=== PATIENT | female | born 1955 | race Caucasian/White ===

== ENCOUNTER → 2017-06-09 13:17 | Outpatient (CLI) | payer MEDICAID, SELFPAY ==
--- NOTE | 2017-06-10 09:48 | PFT ---
INTRODUCTION: The patient is a 61-year-old female currently under the care of Georgette Sandoval NP the presents for pulmonary function testing secondary to a diagnosis of asthma. Respiratory therapy reports good patient effort and reports no other concerns. Bronchodilators were used during testing. INTERPRETATION: Forced expiration spirometry demonstrates no evidence of a large airways obstructive ventilatory defect. There was a significant response to aerosolized bronchodilators noted. Spirogram's plateau normally. Body plethysmography was performed and reveals an elevated RV to 139% of predicted, indicative of air trapping. Diffusing capacity by single breath CO is within normal limits at 73% of predicted. IMPRESSION: These pulmonary function studies demonstrate a significant bronchodilator response and a trend towards air trapping. There is no obstructive ventilatory impairment. Diffusing capacity is normal. This would be in keeping with the patient's diagnosis of asthma.
== END ==
PROVIDERS: Family Provider Family Medicine; PCP Family Medicine; Visit Provider Nurse Practitioner Acute Care
DX: J45.909 Unspecified asthma, uncomplicated (principal)
CPT/HCPCS: 94060; 94726; 94729

== ENCOUNTER → 2017-07-05 13:39 | Outpatient (CLI) | payer MEDICAID, SELFPAY ==
--- NOTE | 2017-07-05 13:42 | RAD_ITS ---
STUDY: X-RAY CHEST REASON FOR EXAM: Female, 62 years old. Shortness of breath cough, and right-sided chest pain TECHNIQUE: PA and lateral views of the chest. COMPARISON: Prior study of 04/22/2015 FINDINGS: The lungs are clear and expanded. There is no demonstrated pleural abnormality. Normal size heart. Normal mediastinum and yue. Normal visualized pulmonary arteries. Normal visualized aortic arch and descending thoracic aorta. Normal visualized thoracic spine. Normal visualized ribs, clavicles, and shoulders. There is no demonstrated abnormality of the visualized soft tissue structures of the upper abdomen. RAD/Chest PA and Lateral IMPRESSION: Normal x-ray examination of the chest. Electronically Signed: Landen Tamayo MD at 22:05 EDT , Service support ,
== END ==
PROVIDERS: Family Provider Family Medicine; PCP Family Medicine; Visit Provider Internal Medicine Critical Care Medicine
DX: J45.901 Unspecified asthma with (acute) exacerbation (principal)
CPT/HCPCS: 71046

== ENCOUNTER → 2017-08-08 08:03 | Outpatient (CLI) | payer MEDICAID, SELFPAY ==
--- NOTE | 2017-08-08 08:05 | BI_ITS ---
MAMMOGRAPHY - BILATERAL SCREENING 3-D TRISH SYNTHESIS REASON FOR EXAM: Female, 62 years old. Bilateral Screening 3-D tomosynthesis PERTINENT HISTORY: Sister with breast cancer.. TECHNIQUE: 2-D mammograms and 3-D Trish synthesis of the breast (s) were performed. CAD was performed. COMPARISON: None. FINDINGS: The breast composition is heterogeneously dense that can obscure small breast masses. Scattered benign calcifications are seen. No dense spiculated masses or suspicious microcalcifications are identified. No architectural distortion is identified. There is no skin thickening or retraction. There has been no significant change since the prior study. BI/SCREENING MAMM (CAD), BILAT IMPRESSION: No mammographic signs of malignancy. Routine yearly mammograms recommended. ASSESSMENT CATEGORY: BIRADS Category 2: Benign. A letter regarding these results will be sent to the patient by the facility within 30 days. FOLLOW UP RECOMMENDATION: Yearly follow up mammogram recommended. (A) Approximately 10% of breast cancers are not detected by mammography. A normal mammogram should not delay biopsy of a clinically suspicious abnormality. Electronically Signed: Calvin Nolan MD at 9:35 EDT , Service support ,
== END ==
PROVIDERS: Family Provider Family Medicine; PCP Family Medicine; Visit Provider Family Medicine
DX: Z12.31 Encounter for screening mammogram for malignant neoplasm of breast (principal)
CPT/HCPCS: 77063; 77067

== ENCOUNTER → 2017-10-11 16:58 | Outpatient (CLI) | payer MEDICAID, SELFPAY ==
--- NOTE | 2017-10-11 17:07 | MRI_ITS ---
STUDY: MRI RIGHT MIDFOOT REASON FOR EXAM: Female, 62 years old. Injury in July 2017 with glass foreign body in foot. Glass was removed, but patient still has pain in the area. TECHNIQUE: Standardized fat and water weighted pulse sequences were obtained in all 3 orthogonal planes. A tissue marker were identified area of clinical concern (short axis series 5 images 10-20). COMPARISON: None. FINDINGS: Normal talonavicular articulation. Normal calcaneocuboid articulation. Normal navicular-cuneiform articulations. Normal intercuneiform articulations. Normal first tarsometatarsal articulation. Normal Lisfranc ligament. Normal second and third tarsometatarsal articulations. Normal cuboid fourth and cuboid fifth tarsometatarsal articulation. Normal first through fifth metatarsi. Normal tibialis anterior tendon. Normal extensor hallucis longus tendon. Normal extensor digitorum longus tendons. Normal peroneus longus tendon and distal insertion. Normal peroneus brevis tendon and distal insertion. Normal intrinsic muscles of the mid and forefoot region. Normal extensor digitorum brevis muscle. Normal subcutis adipose space. MRI/Lower Ext/No Jt/w/o IMPRESSION: No significant abnormality identified. Specifically, no radiopaque foreign body or significant soft tissue abnormality in the area of the tissue marker. Electronically Signed: Orlando Mckeon MD at 10:33 EDT , Service support ,
== END ==
PROVIDERS: Family Provider Family Medicine; PCP Family Medicine; Visit Provider Podiatrist
DX: S90.851A Superficial foreign body, right foot, initial encounter (principal)
CPT/HCPCS: 73718

== ENCOUNTER → 2018-01-30 08:54 | Outpatient (CLI) | payer MEDICAID, SELFPAY ==
--- NOTE | 2018-01-30 09:09 | VDLE_ITS ---
[id number] VL^VDU^Venous Duplex US - Cornelius Extrem [id number] TAG_START [facility] Venous Doppler [address] [place], [place] [id number] Ordering Physician: Devan Perez TAG_ENDED TAG_START Name: JESS CARTER Study Date: 01/30/2018 09:15 AM Patient Location: [facility] : 1955 Gender: Female Age: 62 yrs Ethnicity: C TAG_ENDED Reason For Study: VENOUS INSUF RIGHT LEFT CFV is compressible, spontaneous, phasic, CFV is compressible, spontaneous, phasic, competent and demonstrates normal competent, and demonstrates normal augmentation. augmentation. FV is compressible, spontaneous, phasic, FV is compressible, spontaneous, phasic, competent and demonstrates normal competent and demonstrates normal augmentation. augmentation. POP V is compressible, spontaneous, phasic, POP V is compressible, spontaneous, phasic, competent and demonstrates normal competent and demonstrates normal augmentation. augmentation. T/P Trunk is compressible. T/P Trunk is compressible. PTV is compressible. PTV is compressible. RT PerV is compressible. LT PerV is compressible. RT GSV is compressible and competent Left GSV above the knee is compressible and throughout. competent. RT SSV is compressible and competent. Left GSV below the knee is compressible and Procedure too small to assess for incompetency . Exam performed in department. Left SSV is compressible. A preliminary report was called and/or faxed Left SSV is too small to assess for to DR PEREZ. incompetency. <> Interpretation Summary Deep veins of the lower extremities are bilaterally patent and compressible segmentally. There is no evidence of deep vein thrombosis on either side. Valvular competence appears intact within the proximal deep venous systems bilaterally. The greater saphenous veins appear bilaterally patent and compressible segmentally. The right greater saphenous vein appears segmentally competent. The left greater saphenous vein appears competent above the knee. The left greater saphenous vein is too small to assess below the knee regarding competence. The right small saphenous vein is patent and competent. The left small saphenous vein is patent and compressible, but too small to assess regarding competence. TAG_START TAG_ENDED Ordering Physician: Devan Perez Referring Physician: MARK KIM Performed By: Lynne Rinaldi RDCS, RVT
== END ==
PROVIDERS: Family Provider Family Medicine; PCP Family Medicine; Referring Provider Podiatrist; Visit Provider Podiatrist
DX: I87.2 Venous insufficiency (chronic) (peripheral) (principal); I82.4Z1 Acute embolism and thrombosis of unspecified deep veins of right distal lower extremity
CPT/HCPCS: 93970

== ENCOUNTER → 2018-02-16 09:13 | Outpatient (CLI) | payer MEDICAID, SELFPAY ==
--- NOTE | 2018-02-16 09:15 | RAD_ITS ---
STUDY: X-RAY - RIGHT FEMUR REASON FOR STUDY: Female, 62 years old. Pain TECHNIQUE: Radiological exam, femur, minimum 2 views COMPARISON: None. FINDINGS: Normal visualized femur. Normal visualized soft tissue structure. RAD/Femur Min 2 Views IMPRESSION: Normal x-ray examination of the femur. Electronically Signed: Seven Baugh MD at 2:03 EST Tel , Service support ,
--- NOTE | 2018-02-16 09:55 | RAD_ITS ---
STUDY: X-RAY - LUMBOSACRAL SPINE REASON FOR EXAM: Female, 62 years old. Right leg pain. TECHNIQUE: 6 view(s) of the lumbosacral spine were obtained. COMPARISON: None FINDINGS: Normal lumbar lordosis. There is no substantial scoliosis. There is normal alignment of the vertebrae. No subluxation following lateral flexion and extension positioning. Normal vertebral bodies and endplates. Normal disc space heights. Normal bilateral sacral ala, sacroiliac joints, and visualized sacrum. Normal visualized soft tissue structures. RAD/L/S Spine Comp/w Bending Views IMPRESSION: Normal x-ray examination of the lumbosacral spine without subluxation following lateral flexion and extension positioning. Electronically Signed: Jhonny Gotti MD at 10:12 EST , Service support ,
== END ==
PROVIDERS: Family Provider Family Medicine; PCP Family Medicine; Referring Provider Physician Assistant; Visit Provider Physician Assistant
DX: M89.8X5 Other specified disorders of bone, thigh (principal); M54.5 Low back pain
CPT/HCPCS: 72114; 73552

== ENCOUNTER → 2018-03-13 17:10 | Outpatient (CLI) | payer MEDICAID, SELFPAY ==
--- NOTE | 2018-03-13 17:10 | MRI_ITS ---
STUDY: MRI LUMBAR SPINE WITHOUT CONTRAST REASON FOR EXAM: Female, 62 years old. Low-back pain TECHNIQUE: Standardized fat and water weighted pulse sequences were obtained in the sagittal and axial planes. COMPARISON: None FINDINGS: T12-L1: Normal endplates. Normal disc height, hydration and morphology. Normal bilateral facet joints. Normal central canal and bilateral lateral recesses. Normal bilateral intervertebral neural foramina. Normal lumbar lordosis. There is no substantial scoliosis. Normal conus medullaris that terminates at T12-L1 L1-2: Normal endplates. Normal disc height, hydration and morphology. Normal bilateral facet joints. Normal central canal and bilateral lateral recesses. Normal bilateral intervertebral neural foramina. L2-3: Normal endplates. Normal disc height, hydration and morphology. Normal bilateral facet joints. Normal central canal and bilateral lateral recesses. Normal bilateral intervertebral neural foramina. L3-4: Normal endplates. Normal disc height, desiccation and minor annular bulge.. Normal bilateral facet joints. Normal central canal and bilateral lateral recesses. Normal bilateral intervertebral neural foramina. L4-5: Normal endplates. Normal disc height, desiccation and minor annular bulge with small left foraminal disc protrusion.. Normal bilateral facet joints. Normal central canal and bilateral lateral recesses. Mild left neural foraminal encroachment. L5-S1: Grade 1 retrolisthesis. Normal endplates. Normal disc height, desiccation and minor bulging disc osteophyte complex and tiny central disc protrusion... Bilateral facet arthropathy.. Normal central canal. Moderate bilateral recess and neuroforaminal encroachment. Normal visualized sacral ala. Small cyst noted in the left kidney Normal visualized paraspinous soft tissue structures. MRI/Spine Lumbar (Routine) IMPRESSION: No evidence for acute fracture or other significant bony pathology. Mild spinal stenosis at L4-5 secondary to minor annular bulge with small left foraminal disc protrusion Spinal stenosis at L5-S1 secondary to minor bulging disc osteophyte complex and tiny central disc protrusion with bilateral facet arthropathy. Electronically Signed: Devan Schwarz MD at 20:05 EST , Service support ,
== END ==
PROVIDERS: Family Provider Family Medicine; PCP Family Medicine; Referring Provider Physician Assistant; Visit Provider Physician Assistant
DX: M54.16 Radiculopathy, lumbar region (principal)
CPT/HCPCS: 72148

== ENCOUNTER 2018-05-25 15:36 | Emergency (ER) | payer MEDICAID, SELFPAY ==
[2018-05-09 12:41] VITALS: BMI 22.2
[2018-05-25 15:36] VITALS: BP 118/72; PULSE 74; RESP 16; TEMP 36.6; O2SAT 97; BMI 20.1
--- NOTE | 2018-05-25 16:20 | EKG12_ITS ---
Test Reason : SOB Blood Pressure : / mmHG Vent. Rate : 064 BPM Atrial Rate : 064 BPM P-R Int : 148 ms QRS Dur : 080 ms QT Int : 404 ms P-R-T Axes : 062 053 028 degrees QTc Int : 416 ms Normal sinus rhythm Nonspecific ST and T wave abnormality Abnormal ECG Confirmed by JR RUSSELL, MATTHIAS ([id number]), tape editor PETER BARRERA ([id number]) on 05/30/2018 10:55:51 AM Referred By: RIK Confirmed By:MATTHIAS NORRIS MD
--- NOTE | 2018-05-25 16:37 | RAD_ITS ---
STUDY: X-RAY CHEST REASON FOR EXAM: Female, 62 years old. Cough vomiting fever and chills x2 days TECHNIQUE: Single AP portable view of the chest. COMPARISON: Previous study of 07/05/2017 FINDINGS: The lungs are clear and expanded. There is no demonstrated pleural abnormality. Normal size heart. Normal mediastinum and yue. Normal visualized pulmonary arteries. Normal visualized aortic arch and descending thoracic aorta. Normal visualized thoracic spine. Normal visualized ribs, clavicles, and shoulders. There is no demonstrated abnormality of the visualized soft tissue structures of the upper abdomen. RAD/Chest 1 View (Portable) IMPRESSION: Normal x-ray examination of the chest. Electronically Signed: Landen Tamayo MD at 17:22 EST , Service support ,
--- NOTE | 2018-05-25 16:44 | ED.DCSUM_ITS ---
- ER Visit Summary Date of Service: 05/25/18 Chief Complaint: [] Cough runny nose body ache vomiting History of Present Illness: The patient is a 62 F [] patient reports she has been taking care of her who has a URI with harsh cough of the urinary symptoms she had A URI with runny nose chest congestion coughing and then today after she was given vibratory therapy to help loosen the mucus in her chest using a special vest she began having excessive vomiting and came in for evaluation, she has asthma is generally well controlled she has no history of CO PE DVT GI elements she has had diarrhea as well again indicates her has the same no other exposures she is followed by Dr. Valles of pulmonary she uses 2 handheld medications for her asthma which is generally controlled but during this time of the year can flare Physical Examination: [] Vital signs are within normal range she has a harsh dry cough General, no distress resting comfortably HEENT is generally unremarkable harsh cough airways intact speaking full sentences The neck is supple no adenopathy Cardiovascular, regular rate and rhythm Lungs, diffusely good excursion Abdomen, soft nontender Extremities, no clubbing cyanosis or edema Neurologic, awake alert answering questions appropriately moving all 4 extremities Test Results: [] Emergency Department Course and Treatment: [] In all the above screening labs are obtained aerosols EKG chest x-ray and all screening labs are generally unremarkable see those reports, reevaluation she is feeling better the cough is much improved she was given by her outpatient providers medication to help with the cough and congestion she has all of her asthma medications inhalers at home she is comfortable with discharge home to follow-up with her outpatient providers tomorrow she will try to use a humidifier to help with the medication and return for change in symptoms and again she is improved and wants discharged her also came with her is also improved Treatment Plan: [] Disposition: [] Home stable Impression: [] uRI with harsh cough This note was generated with [employer] dictation software. It may contain incorrect words, spelling, and punctuation that were not noted in review of the chart prior to signing ED Disposition - Plan for ED Patient: Referrals: Helena Lara DO [Primary Care Provider] -
[2018-05-25] MEDS: Ondansetron 4 MG/2 ML Vial IV (17:02)
[2018-05-25] MEDS: 0.9% Normal Saline 1,000 ML 125 ML IV (17:02)
[2018-05-25 17:09] LABS: Bacteria 0 SEEN /hpf (None Seen); Mucous, Urine 0 SEEN /hpf (<or=2+); Squamous Epithelial Cells - UA 0 SEEN /hpf (5-10); White Blood Cells 0 SEEN /hpf (0-5)
[2018-05-25 17:18] LABS: Color, Urine Yellow (Yellow); Glucose, Dipstick Normal (Normal); Ketone-Dipstick 50 mg/dl (Negative); Leukocyte Esterase-Dipstick Negative /ul (Negative); Nitrite-Dipstick Negative (Negative); Occult Blood-Urine 25 /ul (Negative); Protein-Dipstick Negative (Negative); Urine Bilirubin Dipstick Negative (Negative); Urine Clarity Clear (Clear); Urine Urobilinogen Normal (Normal); Urine pH 6.5 (5.0 - 8.0)
[2018-05-25 17:24] LABS: Red Blood Cells-Urine 0-5 SEEN /hpf (0-5)
[2018-05-25 17:36] LABS: Absolute Lymphocyte Count 1.06 X10^3/ul (0.83-4.51); Absolute Neutrophil Count 3.4 X10^3/uL (2.0-7.7); Basophil# 0.01 X10^3/uL; Basophil% 0.2 % (0-1); Hematocrit 37.9 % (37-47); Hemoglobin 12.5 g/dl (12.0-15.0); Lymphocyte # 1.06 X10^3/ul (4.0); Lymphocyte % 21.3 % (19-41); Mean Corpuscular Hgb 29.1 pg (27.0-32.0); Mean Corpuscular Volume 88.3 fL (81-99); Mean Platelet Vol. 9.6 fl (6.2-12.0); Monocyte# 0.55 X10^3/uL; Monocyte% 11.1 % (0-10); Neutrophil # 3.35 X10^3/uL (2.7-7.7); Neutrophil % 67.4 % (47-70); Platelet Count 271 K/mm3 (150-450); RBC Distribution Width CV 12.7 % (11.6-14.6); RBC Distribution Width SD 39.9 fl (35.1-43.9); Red Blood Count 4.29 M/mm3 (4.2-5.4)
[2018-05-25 17:43] VITALS: RESP 14
[2018-05-25 17:48] LABS: POSITIVE COUNT NO; POSITIVE DIFFERENTIAL NO; POSITIVE MORPHOLOGY NO
[2018-05-25 17:52] LABS: AST(SGOT) 18 U/L (15-37); Alanine Aminotransfer ALT/SGPT 14 U/L (13-56); Albumin, Serum 3.8 g/dL (3.2-5.0); Alkaline Phosphatase 63 U/L (45-117); Anion Gap 9 (5-15); BUN 11 mg/dL (7-18); BUN/Creat Ratio 19.9 RATIO (10-20); Bilirubin, Direct 0.11 mg/dL (0.00-0.30); Calcium,Total 8.5 mg/dL (8.5-10.1); Chloride 103 mmol/L (98-107); Creatinine, Serum 0.55 mg/dL (0.55-1.02); EST Glomerular Filtration Rate 117 mL/min (>60); Est Glom Filt Rate - Afr Amer 142 mL/min (>60); Globulin 3.4 g/dL (2.2-4.2); Glucose 89 mg/dL (74-106); Lipase 79 U/L (73-393); Potassium 3.4 mmol/L (3.5-5.1); Protein, Total 7.2 g/dL (6.4-8.2); Sodium Level 137 mmol/L (136-145)
--- NOTE | 2018-05-25 18:43 | ED.RN ---
PT TAKES TYLENOL AT HOME, STATES SHE TOOK TYLENOL THIS MORNING AND IS NOT ALLERGIC TO TYLENOL.
[2018-05-25] MEDS: proMETHazine 25 MG/ML Syringe 12.5 MG IV (18:49)
[2018-05-25] MEDS: Acetaminophen 500 MG Tablet 1000 MG PO (18:50)
[2018-05-25] MEDS: Ipratropium/Albuterol Sulfate 3 ML AMPUL.NEB INHALATION (19:25)
[2018-05-25 19:26] VITALS: PULSE 65; RESP 18
--- NOTE | 2018-05-25 19:54 | ED.DEP ---
ED Disposition - Plan for ED Patient: Instructions: ED Nausea Vomiting Prescriptions: Ondansetron [Zofran Odt] 4 mg PO Q8H PRN PRN #10 tab PRN Reason: Nausea Referrals: Helena Lara DO [Primary Care Provider] -
[2018-05-25 20:24] VITALS: PULSE 79; O2SAT 96
== END 2018-05-25 20:24 | disposition home or self-care (01) ==
PROVIDERS: Emergency Provider Emergency Medicine; Family Provider Family Medicine; PCP Family Medicine
DX: J06.9 Acute upper respiratory infection, unspecified (principal); R11.2 Nausea with vomiting, unspecified; R19.7 Diarrhea, unspecified; J45.909 Unspecified asthma, uncomplicated
CPT/HCPCS: 71045; 80048; 80076; 81001; 83690; 84484; 85025; 93005; 94640; 96361; 96374; 96375; 99284; J7030; A4216; J2405

== ENCOUNTER → 2018-09-08 08:11 | Outpatient (CLI) | payer MEDICAID, SELFPAY ==
[2018-08-02 13:32] VITALS: BMI 20.1
--- NOTE | 2018-09-08 08:13 | BI_ITS ---
MAMMOGRAPHY - BILATERAL SCREENING REASON FOR EXAM: Female, 63 years old. Routine annual screening examination. PERTINENT HISTORY: Sister with breast cancer. TECHNIQUE: Digital bilateral breast batool (3D mammographic acquisition) in the CC and MLO projections. 2-D mediolateral oblique (MLO) and craniocaudad (CC) views of both breasts were obtained. CAD: Full Field Digital Mammography with Computer Added Detection was performed. COMPARISON: Comparison is made with prior study dated 08/08/2017 and July 13, 2016. FINDINGS: Breast Composition: The breasts are heterogeneously dense, which may obscure small masses. There are no dominant masses or suspicious calcifications. Stable small bilateral axillary lymph nodes. No other significant abnormalities are identified. There has been no significant change since the prior study. BI/SCREENING MAMM (CAD), BILAT IMPRESSION: Stable bilateral screening mammogram. Yearly follow-up mammogram recommended. (A) ASSESSMENT CATEGORY: BIRADS Category 2: Benign. A letter regarding these results will be sent to the patient by the facility within 30 days. Approximately 10% of breast cancers are not detected by mammography. A normal mammogram should not delay biopsy of a clinically suspicious abnormality. [id number] Electronically Signed: Marin Valnete, at 9:35 EDT , Service support ,
== END ==
PROVIDERS: Family Provider Family Medicine; PCP Family Medicine; Referring Provider Family Medicine; Visit Provider Family Medicine
DX: Z12.31 Encounter for screening mammogram for malignant neoplasm of breast (principal); Z80.3 Family history of malignant neoplasm of breast
CPT/HCPCS: 77063; 77067

== ENCOUNTER → 2018-11-03 14:40 | Outpatient (CLI) | payer MEDICAID, SELFPAY ==
[2018-08-02 13:32] VITALS: BMI 20.1
--- NOTE | 2018-11-03 14:43 | US_ITS ---
HISTORY:RIGHT PELVIC PAIN RIGHT PELVIC PAIN EXAMINATION: US Pelvis Non-OB Complete TECHNIQUE: Transabdominal pelvic ultrasound was performed. Grayscale, spectral waveform, and color flow Doppler evaluation of the adnexa. COMPARISON: None FINDINGS: UTERUS: anteverted. The uterus measures 6.1 x 3.2 x 2.7 cm. Questional fundal fibroid measuring approximate 1.2 x 1.7 x 1.4 cm there is also a lesion within the cervix measures 1.1 x 1.2 x 0.8 cm. There is internal vascularity. The etiology is uncertain. This may be adjacent to nabothian cyst. The endometrial stripe measures 0.2 cm in AP diameter which is within normal limits. RIGHT OVARY: 1.5 x 1.1 x 0.9 cm. There is vascular flow LEFT OVARY: . 2.2 x 1.7 x 1.5 cm... There is vascular flow US/Pelvic (Non ) IMPRESSION: Suspect uterine fibroid Irregular lesion within the cervix. This is hypoechoic with increased vascularity and may be adjacent to nabothian cyst. If clinically indicated I would consider MRI with contrast for further evaluation at 2142 Reported and signed by: Erica Wells DO Electronically Signed: Erica Wells DO at 21:41 EDT Tel , Service support ,
--- NOTE | 2018-11-03 14:43 | US_ITS ---
STUDY: SUPERFICIAL ULTRASOUND - RIGHT LEG REASON FOR EXAM: Female, 63 years old. Right thigh lumps. TECHNIQUE: An ultrasound of the right lower extremity was performed with real-time and static rao-scale imaging. COMPARISON: None. FINDINGS: Heterogeneous, incompletely defined 2.6 x 1.2 x 0.9 cm structure is seen within the muscular tissue at the anterior mid thigh, reportedly a site of pain/burning. A vague 3 x 6.4 mm hyperechogenicity suggestive in the subcutaneous fat at the anterior mid thigh as well. A 17 x 10 x 7 mm heterogeneous structure with some eccentric flow on color Doppler is noted at the right groin, possibly a lymph node. Very small volume fluid is seen tracking along the planes of the quadriceps tendon above the right knee. US/Ext Non Vasc Limited/Soft Tiss IMPRESSION: 1. 2.6 cm heterogeneous structure that may be a hematoma in the muscle of the anterior mid right thigh. Differential includes other soft tissue mass, including neoplasm. A possible lymph node at the right groin has a similar appearance. If clinically indicated, this could be further characterized with MRI. 2. Minimal fluid seen tracking along the planes of the quadriceps tendon above the knee. 3. 6 mm vague hyperechoic area in the subcutaneous fat at the mid thigh might be focal hemorrhage. Electronically Signed: Calvin Cain MD at 20:02 EDT , Service support ,
--- NOTE | 2018-11-03 15:11 | US_ITS ---
HISTORY:RIGHT PELVIC PAIN RIGHT PELVIC PAIN EXAMINATION: US Pelvis Non-OB Complete TECHNIQUE: Transabdominal pelvic ultrasound was performed. Grayscale, spectral waveform, and color flow Doppler evaluation of the adnexa. COMPARISON: None FINDINGS: UTERUS: anteverted. The uterus measures 6.1 x 3.2 x 2.7 cm. Questional fundal fibroid measuring approximate 1.2 x 1.7 x 1.4 cm there is also a lesion within the cervix measures 1.1 x 1.2 x 0.8 cm. There is internal vascularity. The etiology is uncertain. This may be adjacent to nabothian cyst. The endometrial stripe measures 0.2 cm in AP diameter which is within normal limits. RIGHT OVARY: 1.5 x 1.1 x 0.9 cm. There is vascular flow LEFT OVARY: . 2.2 x 1.7 x 1.5 cm... There is vascular flow US/Transvaginal Non- IMPRESSION: Suspect uterine fibroid Irregular lesion within the cervix. This is hypoechoic with increased vascularity and may be adjacent to nabothian cyst. If clinically indicated I would consider MRI with contrast for further evaluation at 2142 Reported and signed by: Erica Wells DO Electronically Signed: Erica Wells DO at 21:41 EDT Tel , Service support ,
== END ==
PROVIDERS: Family Provider Family Medicine; PCP Family Medicine; Referring Provider Family Medicine; Visit Provider Family Medicine
DX: R22.41 Localized swelling, mass and lump, right lower limb (principal); R10.2 Pelvic and perineal pain
CPT/HCPCS: 76830; 76856; 76882; 93976

== ENCOUNTER → 2018-11-14 11:04 | Outpatient (CLI) | payer MEDICAID, SELFPAY ==
[2018-08-02 13:32] VITALS: BMI 20.1
--- NOTE | 2018-11-14 11:21 | MRI_ITS ---
STUDY: MRI LOWER EXTREMITY RIGHT THIGH WITH AND WITHOUT CONTRAST REASON FOR EXAM: Pain and burning, evaluate for right thigh mass, follow-up to ultrasound. TECHNIQUE: Standardized fat and water weighted pulse sequences were obtained in all 3 orthogonal planes, post contrast administration. 10 IV Dotarem was administered for the contrast portion of the examination. COMPARISON: Radiographs 02/16/2018 and ultrasound 11/03/2018. FINDINGS: There is a right inguinal lymph node with central fat replacement measuring 1.1 cm in AP dimension (T1 axial image 10). Normal subcutis adipose space. Normal quadriceps, adductor and hamstring muscles. There specifically is no demonstrated soft tissue mass in the musculature of the anterior mid thigh. There is no abnormal contrast enhancement. Normal quadriceps extensor mechanism with a normal rectus femoris, vastus medialis, intermedius and lateralis muscles. Normal visualized femur. MRI/Lower Ext No Joint W/WO Cont IMPRESSION: Benign right inguinal lymph node. Otherwise, unremarkable MRI right thigh without demonstrated intramuscular mass. Electronically Signed: Andrew Schwartz MD at 13:25 EDT Tel , Service support ,
[2018-11-14 11:51] LABS: CREATININE FINGERSTICK 0.8 mg/dL (0.55-1.02); EGFR FINGERSTICK > 60.0000 mL/min (>60)
== END ==
PROVIDERS: Family Provider Family Medicine; PCP Family Medicine; Referring Provider Family Medicine; Visit Provider Family Medicine
DX: R22.41 Localized swelling, mass and lump, right lower limb (principal); R59.0 Localized enlarged lymph nodes
CPT/HCPCS: 73720; A9575

== ENCOUNTER → 2018-12-08 17:12 | Outpatient (CLI) | payer MEDICAID, SELFPAY ==
[2018-08-02 13:32] VITALS: BMI 20.1
--- NOTE | 2018-12-08 17:30 | MRI_ITS ---
STUDY: MRI LUMBAR SPINE WITHOUT CONTRAST REASON FOR EXAM: Female, 63 years old. Weakness and numbness in right leg TECHNIQUE: Standardized fat and water weighted pulse sequences were obtained in the sagittal and axial planes. COMPARISON: March 13, 2018 FINDINGS: T12-L1: Normal endplates. Normal disc height, hydration and morphology. Normal bilateral facet joints. Normal central canal and bilateral lateral recesses. Normal bilateral intervertebral neural foramina. Normal lumbar lordosis. There is no substantial scoliosis. Normal conus medullaris that terminates at T12-L1 L1-2: Normal endplates. Normal disc height, hydration and morphology. Normal bilateral facet joints. Normal central canal and bilateral lateral recesses. Normal bilateral intervertebral neural foramina. L2-3: Normal endplates. Normal disc height, hydration and morphology. Normal bilateral facet joints. Normal central canal and bilateral lateral recesses. Normal bilateral intervertebral neural foramina. L3-4: Normal endplates. Normal disc height, desiccation and normal morphology. Normal bilateral facet joints. Normal central canal and bilateral lateral recesses. Normal bilateral intervertebral neural foramina. L4-5: Normal endplates. Normal disc height, desiccation and minor annular bulge with small left foraminal disc protrusion.. Normal bilateral facet joints. Normal central canal and bilateral lateral recesses. Mild left neural foraminal encroachment. L5-S1: Grade 1 retrolisthesis. Normal endplates. Normal disc height, desiccation and minor bulging disc osteophyte complex and tiny central disc protrusion... Bilateral facet arthropathy.. Normal central canal. Mild bilateral recess stenosis and moderate neuroforaminal stenosis slightly more pronounced on the right Normal visualized sacral ala. Normal visualized paraspinous soft tissue structures. No significant changes since prior exam MRI/Spine Lumbar (Routine) IMPRESSION: Mild left neuroforaminal stenosis at L4-5 secondary to minor annular bulge with small left foraminal disc protrusion Mild bilateral recess and moderate neural foraminal stenosis slightly greater on the right and L5-S1 due to minor bulging disc osteophyte complex and tiny central disc protrusion with facet arthropathy. Electronically Signed: Devan Schwarz MD at 18:50 EDT , Service support ,
== END ==
PROVIDERS: Family Provider Family Medicine; PCP Family Medicine; Referring Provider Family Medicine; Visit Provider Family Medicine
DX: R29.898 Other symptoms and signs involving the musculoskeletal system (principal); R20.0 Anesthesia of skin; M54.16 Radiculopathy, lumbar region
CPT/HCPCS: 72148

== ENCOUNTER → 2019-01-15 09:21 | Outpatient (CLI) | payer MEDICAID, SELFPAY ==
[2019-01-15 08:15] VITALS: BMI 20.1
[2019-01-16 14:09] LABS: Cancer Antigen 125 18.7 U/mL (0.0-38.1)
[2019-01-19 18:42] LABS: HPV APTIMA, High Risk Negative (Negative)
== END ==
PROVIDERS: Family Provider Family Medicine; PCP Family Medicine; Referring Provider Obstetrics & Gynecology; Visit Provider Obstetrics & Gynecology
DX: Z12.4 Encounter for screening for malignant neoplasm of cervix (principal); N88.9 Noninflammatory disorder of cervix uteri, unspecified
CPT/HCPCS: 36415; 86304; 87624; 88175; G0145

== ENCOUNTER → 2019-02-16 09:18 | Outpatient (CLI) | payer MEDICAID, SELFPAY ==
[2019-01-15 08:15] VITALS: BMI 20.1
--- NOTE | 2019-02-16 09:28 | MRI_ITS ---
STUDY: MR PELVIS WITH T WITHOUT CONTRAST REASON FOR EXAM: Female, 63 years old. Follow-up to abnormal sonogram, October 2018. TECHNIQUE: Standardized fat and water weighted pulse sequences were obtained in all 3 orthogonal planes, pre-and post contrast administration. IV Dotarem 10 was administered for the contrast portion of the examination. COMPARISON: Pelvic ultrasound, November 03, 2018 and October 14, 2016. FINDINGS: Normal urinary bladder. Normal visualized small intestine. Normal visualized colon. Normal appendix. The uterus is anteverted and slightly tilted to the right. It measures 5.7 x 2.7 x 3.9 cm. There is a 1.1 x 1.0 x 1.3 cm mass in the anterior mid fundus which demonstrates low signal intensity on both T1 and T2-weighted imaging. There is minimal enhancement on postgadolinium imaging. There is a second low signal mass in the right submucosal fundal wall measuring 1.1 x 1.2 x 0.8 cm along its medial edge there are 2 nodular extensions into the endometrial canal. This portion of the mass measures 1.0 x 0.6 x 0.3 cm in size is best seen on image 17 of series 6 and image 16 of series 4. There is partial contrast enhancement. In the right posterior fundus there is a 0.6 x 0.6 x 0.8 cm hypodense focus without enhancement. Endometrium measures 2 mm in thickness with normal signal intensity on all sequences. In the region of the cervix there is a 1.4 x 0.9 x 1.2 cm area of abnormal signal enhancement which appears to be wall thickening about the cervical canal. This appears to correlate with the mildly hypoechoic focus is seen in this region on ultrasound. This appears mildly hyperechoic to the myometrium on both T1 and T2 weighted imaging. There is a a linear central area of higher signal intensity on T2-weighted imaging, thought to represent the cervical canal. This demonstrates enhancement greater than the myometrium on postgadolinium imaging. Small amount of fluid is seen in the expected position in the upper cervical canal just above this area. The ovaries are not well demonstrated. No evidence of adnexal mass. There is no pelvic fluid. There is no pelvic mass lesion or lymphadenopathy. Normal visualized pelvic arteries. Normal osseous structures. Normal abdominal wall. MRI/Pelvis W/WO Contrast IMPRESSION: 1. Enhancing mass within the region of the cervical canal. Possibility of cervical carcinoma cannot be ruled out. Biopsy is recommended. 2. Multiple uterine fibroids. There is a nonenhancing mass in the right uterus which appears to extend into the endometrial canal. This is thought to represent a fibroid, however, and exact etiology cannot be ascertained from imaging characteristics. Biopsy may be required. Electronically Signed: Kristopher Aldridge DO at 16:29 EST Tel [phone], Service support ,
[2019-02-16 09:56] LABS: CREATININE FINGERSTICK 0.7 mg/dL (0.55-1.02); EGFR FINGERSTICK > 60.0000 mL/min (>60)
== END ==
PROVIDERS: Family Provider Family Medicine; PCP Family Medicine; Referring Provider Obstetrics & Gynecology; Visit Provider Obstetrics & Gynecology
DX: N88.9 Noninflammatory disorder of cervix uteri, unspecified (principal)
CPT/HCPCS: 72197; A9575